=== PATIENT | female | born 1990 | race Caucasian/White ===

== ENCOUNTER → 2017-01-02 | Day surgery (SDC) | payer OTHER ==
[2016-12-11 07:33] VITALS: Ht 165.1 cm; Wt 63.6 kg
[~2017-01-02] VITALS: Ht 165.1 cm; Wt 63.6 kg
[~2017-01-02] MED LIST: ATROPINE SULFATE 0.1 MG/ML 5ML SYR IV PRN; BUPIVACAINE 0.5 % 5 MG/1 ML MPF 30ML VIAL ONE; CLINDAMYCIN PHOS 150 MG/ML 2 ML VIAL IV SCH; DEXAMETHASONE SOD INJ 4 MG/ML VIAL ONE; EpHEDrine SULFATE INJ 50 MG/ML AMP IV PRN; FENTANYL CITRATE INJ 50 MCG/1 ML 2 ML VIAL IV PRN; FENTANYL CITRATE INJ 50 MCG/1 ML 2 ML VIAL ONE; HYDR-5688 PO; HYDROCODONE/ACETAMOPHEN 5/325MG TAB PO PRN; HYDROmorphone INJ 1 MG/ML SYR IV PRN; LACTATED RINGER'S 1000ML 1,000 ML IV SCH; LIDOCAINE HCL 1% 20 ML VIAL ONE; LIDOCAINE HCL 2% 2 ML VIAL (20MG/ML) ONE; MIDAZOLAM HCL 1 MG/ML 2ML VIAL ONE; ONDANSETRON INJ 2 MG/ML 2 ML VIAL IV PRN; ONDANSETRON INJ 2 MG/ML 2 ML VIAL ONE; PROMETHAZINE HCL INJ 12.5 MG in SODIUM CHLORIDE 0.9% 50ML 50 ML IV PRN; PROPOFOL IV EMULSION 10 MG/ML 20 ML VIAL IV ONE; SODIUM CHLORIDE 0.9% 1000ML 1,000 ML IV SCH
--- NOTE | 2017-01-02 09:35 | History & Physical Bridge - [place] ---
H&P Re-Evaluation Bridge Note: I have examined the patient, reviewed the History & Physical and in the interval since the performance of the History & Physical I have noted the following changes of clinical significance: No changes noted
--- NOTE | 2017-01-02 10:21 | [facility] Operative Report ---
Operative Report Operative Date Jan 02, 2017. Pre-Operative Diagnosis Right Thigh Lipoma Post-Operative Diagnosis same as preop, and scar tissue Procedure(s) Performed Right Medial Upper Thigh Lipoma Excision Surgeon Dr. Carter Central Office Equipment Engineer Surgeon(s) KEYLA New Estimated Blood Loss 5ML Findings 5x3 cm lipoma and associated scar tissue, no overt sinus tract Specimens A: Right Medial Thigh Lipoma B: Superior Medial Tissue, Right Medial Thigh Anesthesia gen Complication(s) None Disposition Recovery Room / PACU I attest to the content of the Intraoperative Record and any orders documented therein. Any exceptions are noted below.
--- NOTE | 2017-01-02 10:27 | Discharge Instructions-SurgCtr ---
Discharge Instructions Date of Service Jan 02, 2017. Visit Reason for Visit: Right Thigh Lipoma Discharge Discharge Diagnosis / Problem: Rt thigh lipoma and scar tissue Discharge Goals Goal(s): Decrease discomfort, Improve function, Improve disease control Activity Recommendations Activity Limitations: as noted below Lifting Limitations: no more than 25 pounds Exercise/Sports Limitations: until after follow-up appointment May Resume Sexual Activity: when tolerated Shower/Bathe: tomorrow SPECIAL CARE INSTRUCTIONS: may need one week off work * Cover incisions and change daily for comfort/drainage. * May use ibuprofen for pain as tolerated. * Expect some swelling and bruising. Call your doctor if: * Temperature above 101 degrees * Pain not relieved by pain medicine ordered * There is increased drainage or redness from any incision * You have any unanswered questions or concerns [phone]. FOLLOW UP VISIT: If not already scheduled, please call the office for a follow-up visit. for one week- some suture removal OFFICE PHONE NUMBER: Dr. Carter Office Anesthesia . Post Anesthesia Instructions: If you have had General Anesthesia or IV Sedation: * Do not drive today. * Resume driving when surgeon permits. * Do not make important decisions or sign legal documents today. * Call surgeon for: 1. Temperature elevations greater than 101 degrees F. 2. Uncontrollable pain. 3. Excessive bleeding. 4. Persistent nausea and vomiting. 5. Medication intolerance (nausea, vomiting or rash). * For nausea and vomiting use only clear liquids such as: tea, soda, bouillon until nausea subsides, then gradually increase diet as tolerated. * If you have any concerns or questions, call your surgeon's office. If physician is unavailable and it is an emergency, call 911 or go to the nearest emergency room. . Instructions / Follow-Up Instructions / Follow-Up may need one week off work Diet Recommendations Home Diet: resume previous diet Procedures Procedures Performed: Right Medial Upper Thigh Lipoma Excision Pending Studies Studies pending at discharge: no Medical Emergencies . Who to Call and When: Medical Emergencies: If at any time you feel your situation is an emergency, please call 911 immediately. . Non-Emergent Contact Non-Emergency issues call your: Primary Care Provider, Surgeon . . "Provider Documentation" section prepared by Craig Carter. .
--- NOTE | 2017-01-02 10:52 | OPERATIVE REPORT ---
DATE OF OPERATION: 01/02/2017 PREOPERATIVE DIAGNOSIS: Lipoma. POSTOPERATIVE DIAGNOSIS: Same with scar tissue. NAME OF OPERATION: Excision of 5 x 3 cm lipoma of the medial upper right thigh and also associated scar tissue. STAFF SURGEON: Dr. Carter. RAILROAD BRAKE OPERATOR: Stephon Prabhakar PA-C. ANESTHESIA: General. PROCEDURE: The patient was brought in the operating room and placed on the operating table in supine position. Her legs were placed in flexed position exposing the upper medial right thigh area. She did have a small skin site that appeared that could be an old area of folliculitis. Elliptical incision was made around this area carrying dissection down into the subcutaneous space. I did not identify a sinus tract but I did identify a lipoma and also associated scar tissue from what could have been a prior inflammation. The patient does ride horses and produces a fair amount of friction in this area. The tissue was excised. The lipoma was approximately 5 x 3 cm. Additional superior tissue was also taken which appeared to be scar tissue. The deep tissue was then reapproximated using 2-0 plain catgut suture then the skin reapproximated using subcuticular 5-0 Monocryl and 5-0 Prolene for the skin. Dressing applied and patient transferred to recovery room in stable condition. As a note, my hospital administrative assistant helped with prepping, draping, retraction during the operation and also helping with closure of the wound. I attest to the content of the Intraoperative Record and any orders documented therein. Any exception s are noted below.
[2017-01-02 11:24] VITALS: TEMP 37.1
[2017-01-02 11:39] VITALS: BP 113/73; PULSE 66; O2SAT 100
--- NOTE | 2017-01-02 11:43 | Anesthesia Progress Nt - [facility] ---
Anesthesia Post Op Note Date & Time Jan 02, 2017 at 11:43 Vital Signs Pain Intensity: 0 Vital Signs Past 12 Hours Date Time Temp Pulse Resp B/P (MAP) Pulse Ox O2 Delivery O2 Flow Rate FiO2 01/02/17 11:39 66 16 113/73 (86) 100 Room Air 01/02/17 11:24 37.1 68 16 117/73 (88) 98 Room Air 01/02/17 11:01 57 17 01/02/17 11:01 57 17 100 01/02/17 11:00 111/76 01/02/17 10:58 36.9 55 16 112/78 100 Room Air 01/02/17 10:57 55 14 100 01/02/17 10:57 56 14 01/02/17 10:56 57 15 100 01/02/17 10:56 56 15 01/02/17 10:55 112/78 01/02/17 10:51 55 16 01/02/17 10:51 54 16 100 01/02/17 10:50 112/78 01/02/17 10:47 53 13 100 01/02/17 10:47 55 13 01/02/17 10:46 62 18 100 01/02/17 10:46 62 18 01/02/17 10:45 107/77 01/02/17 10:41 57 14 01/02/17 10:41 55 14 100 01/02/17 10:40 113/78 01/02/17 10:38 71 13 01/02/17 10:38 69 13 100 01/02/17 10:37 59 19 01/02/17 10:37 59 19 100 01/02/17 10:36 68 20 100 01/02/17 10:36 67 20 01/02/17 10:35 113/80 01/02/17 10:32 66 16 100 01/02/17 10:32 66 16 01/02/17 10:30 120/81 01/02/17 10:27 36.5 77 20 112/84 100 Mask 01/02/17 10:27 112/84 01/02/17 08:24 36.7 84 18 113/74 (87) 100 Room Air Notes Mental Status: alert / awake / arousable, participated in evaluation Pt Amnestic to Procedure: Yes Nausea / Vomiting: adequately controlled Pain: adequately controlled Airway Patency, RR, SpO2: stable & adequate BP & HR: stable & adequate Hydration State: stable & adequate Anesthetic Complications: no major complications apparent
== END | disposition home or self-care (01) ==
LOC: X.SURG 08:18
PROVIDERS: ATTEND Surgery
DX: D17.9 Benign lipomatous neoplasm, unspecified (principal); R22.9 Localized swelling, mass and lump, unspecified; Z80.3 Family history of malignant neoplasm of breast; Z82.49 Family history of ischemic heart disease and other diseases of the circulatory system